=== PATIENT | female | born 1955 | race Caucasian/White ===

== ENCOUNTER → 2024-04-12 11:45 | Outpatient (CLI) | payer MEDICARE, BC, SELFPAY | LOC: RESP 11:47 | PROVIDERS: PCP Student in an Organized Health Care Education/Training Program; Referring Provider Student in an Organized Health Care Education/Training Program; Visit Provider Student in an Organized Health Care Education/Training Program | DX: R06.09 Other forms of dyspnea (principal); R94.2 Abnormal results of pulmonary function studies | CPT/HCPCS: 94060; 94726; 94729 ==

== ENCOUNTER → 2024-07-05 15:13 | Outpatient (CLI) | payer MEDICARE, BC, SELFPAY ==
--- NOTE | 2024-07-05 15:14 | DI.NM.S_ITS ---
PROCEDURE: NM EXERCISE TREADMILL NON NUC COMPARISON: None. INDICATIONS: ESCOBEDO FINDINGS: Rest ECG sinus rhythm 74 bpm. Chris protocol 9:05, maximum heart rate 144 bpm (96% peak predicted), peak blood pressure 140/80, 9.1 METS, AGUSTINA -56%. Exercise ECG sinus tachycardia, no ST segment changes or arrhythmia. The patient did not report exercise-induced chest discomfort. SpO2 at peak exercise 93%. IMPRESSION: 1. No evidence of exercise-induced ischemia or arrhythmia. 2. Normal hemodynamic response. 3. Excellent exercise capacity. 4. No exercise-induced hypoxemia. Dictated by: Tanya Lopez D.O. on 07/05/2024 at 16:53 Approved by: Tanya Lopez D.O. on 07/05/2024 at 16:58
== END ==
PROVIDERS: PCP Student in an Organized Health Care Education/Training Program; Referring Provider Student in an Organized Health Care Education/Training Program; Visit Provider Student in an Organized Health Care Education/Training Program
DX: R06.09 Other forms of dyspnea (principal)
CPT/HCPCS: 93017